=== PATIENT | male | born 1970 | race Caucasian/White ===

== ENCOUNTER 2023-03-07 19:56 | Emergency (ER) | payer MEDICAID ==
[~2023-03-07] VITALS: Ht 177.8 cm; Wt 83.9 kg
[2023-03-07 20:14] VITALS: BP_SYST 116; PULSE 85; RESP 19; TEMP 97.6; O2SAT 95
[2023-03-07] MEDS ORDERED: SULF1TAB48 PO (21:06)
[2023-03-07] MEDS ORDERED: cefTRIAXone 1 GM in LIDOCAINE 1%, 20 ML MDV 2.1 ML IM ONE (21:15)
[2023-03-07 21:44] VITALS: BP_SYST 116; PULSE 85; RESP 19; TEMP 97.6; O2SAT 95
== END 2023-03-07 21:44 | disposition home or self-care (01) ==
LOC: SED 19:56
DX: L03.113 Cellulitis of right upper limb (principal)
CPT/HCPCS: 99283; 96372; J0696; J2001